=== PATIENT | female | born 1955 | race Caucasian/White ===

== ENCOUNTER 2023-06-19 13:09 | Emergency (ER) | payer MEDICARE ==
--- NOTE | 2023-06-19 13:46 | ED ---
General Adult HPI - General Stated complaint: fell R side rib pain Time Seen by Provider: 06/19/23 13:44 Source: patient, RN notes reviewed - History of Present Illness Initial comments: patient is a 68-year-old female presented ER with a chief complaint of right- sided rib pain. Patient states she had a seizure on Saturday and fell off the toilet. Patient states she hit the right side of her ribs and has been having pain since. Patient does have a history of seizures. Denies any chest pain but does state she cannot take a deep breath due to pain. - Related Data Allergies Allergy/AdvReac Type Severity Reaction Status Date / Time No Known Allergies Allergy Verified 06/19/23 15:46 Review of Systems ROS Statement: Those systems with pertinent positive or pertinent negative responses have been documented in the HPI. ROS Other: All systems not noted in ROS Statement are negative. General Exam - General Exam Comments Initial Comments: Visual Physical Exam Vital signs reviewed General: Well-appearing, nontoxic, no acute distress. Head: Normocephalic, atraumatic Eyes: PERRLA, EOMI ENT: Airway patent Chest: Nonlabored breathing Skin: No visual rash, normal skin tone Neuro: Alert and oriented 3 Musculoskeletal: No gross abnormalities Course Vital Signs 06/19/23 15:31 Temperature 98.4 F Pulse Rate 91 Respiratory 18 Rate Blood Pressure 121/83 O2 Sat by Pulse 96 Oximetry Medical Decision Making - Medical Decision Making I performed the quick note portion of the exam. Electronically signed by Daniel Thakur PA-C Patient eloped prior to completion of medical treatment. - Lab Data Result diagrams: 06/19/23 14:03 06/19/23 14:03 Lab Results 06/19/23 06/19/23 06/19/23 Range/Units 14:03 14:03 14:03 WBC 7.4 (3.8-10.6) k/uL RBC 3.88 (3.80-5.40) m/uL Hgb 12.2 (11.4-16.0) gm/dL Hct 36.6 (34.0-46.0) % MCV 94.4 (80.0-100.0) fL MCH 31.4 (25.0-35.0) pg MCHC 33.3 (31.0-37.0) g/dL RDW 12.5 (11.5-15.5) % Plt Count 190 (150-450) k/uL MPV 8.0 Sodium 142 (137-145) mmol/L Potassium 4.4 (3.5-5.1) mmol/L Chloride 106 (98-107) mmol/L Carbon Dioxide 26 (22-30) mmol/L Anion Gap 10 mmol/L BUN 14 (7-17) mg/dL Creatinine 0.70 (0.52-1.04) mg/dL Est GFR (CKD-EPI)AfAm >90 (>60 ml/min/1.73 sqM) Est GFR (CKD-EPI)NonAf 89 (>60 ml/min/1.73 sqM) Glucose 116 H (74-99) mg/dL Calcium 9.3 (8.4-10.2) mg/dL Total Bilirubin 0.3 (0.2-1.3) mg/dL AST 33 (14-36) U/L ALT 32 (4-34) U/L Alkaline Phosphatase 70 (38-126) U/L Total Protein 6.9 (6.3-8.2) g/dL Albumin 4.2 (3.5-5.0) g/dL Influenza Type A (PCR) Not Detected (Not Detectd) Influenza Type B (PCR) Not Detected (Not Detectd) RSV (PCR) Not Detected (Not Detectd) SARS-CoV-2 (PCR) Not Detected (Not Detectd) Disposition Clinical Impression: Left against medical advice Disposition: LEFT AGAINST MEDICAL ADVICE Condition: Undetermined Referrals: None,Stated [REFERRING] - 1-2 days Time of Disposition: 18:20
[2023-06-19 14:38] LABS: HCT 36.6 % (34.0-46.0); HGB 12.2 gm/dL (11.4-16.0); MCH 31.4 pg (25.0-35.0); MCHC 33.3 g/dL (31.0-37.0); MCV 94.4 fL (80.0-100.0); Platelet Count 190 k/uL (150-450); RBC 3.88 m/uL (3.80-5.40); RDW 12.5 % (11.5-15.5); WBC 7.4 k/uL (3.8-10.6)
[2023-06-19 14:42] LABS: ALT 32 U/L (4-34); AST 33 U/L (14-36); African American GFR (CKD) >90 (>60 ml/min/1.73 sqM); Albumin 4.2 g/dL (3.5-5.0); Alkaline Phosphatase 70 U/L (38-126); Anion Gap 10 mmol/L; Blood Urea Nitrogen 14 mg/dL (7-17); Calcium 9.3 mg/dL (8.4-10.2); Carbon Dioxide 26 mmol/L (22-30); Chloride 106 mmol/L (98-107); Glucose 116 mg/dL (74-99); Non-African American GFR(CKD) 89 (>60 ml/min/1.73 sqM); Potassium 4.4 mmol/L (3.5-5.1); Sodium 142 mmol/L (137-145); Total Bilirubin 0.3 mg/dL (0.2-1.3); Total Protein 6.9 g/dL (6.3-8.2)
[2023-06-19 15:48] VITALS: BP 121/83; PULSE 91; RESP 18; TEMP 98.4
--- NOTE | 2023-06-19 16:58 | XR ---
EXAMINATION TYPE: XR ribs bilat w pa chest xray DATE OF EXAM: 06/19/2023 4:04 PM CLINICAL INDICATION:Female, 68 years old with history of pain; COMPARISON: None TECHNIQUE: XR ribs bilat w pa chest xray; Frontal and oblique views of the ribs with frontal chest ra diograph. FINDINGS: The ribs have a normal appearance. No evidence of fracture. Overall, the lungs are clear. The cardiac silhouette is normal in size. The remaining osseous structures are intact. IMPRESSION: No acute osseous pathology.
== END 2023-06-19 17:33 | disposition left against medical advice (07) ==
LOC: EC 13:09 → SUPCPDRO 13:09 → EC 17:33
DX: R07.81 Pleurodynia (principal); R56.9 Unspecified convulsions; Z20.822 Contact with and (suspected) exposure to COVID-19; Z53.29 Procedure and treatment not carried out because of patient's decision for other reasons; W18.11XA Fall from or off toilet without subsequent striking against object, initial encounter
CPT/HCPCS: 36415; 71111; 80053; 85027; 87636; 99283